=== PATIENT | female | born 1995 | race Caucasian/White ===

== ENCOUNTER 2016-03-02 00:24 | Inpatient (IN) | payer OTHER ==
[2016-03-02 06:27] VITALS: BP 135/76
--- NOTE | 2016-03-02 06:31 | Progress Note ---
Subjective General without complication full note dictated.
--- NOTE | 2016-03-02 06:31 | Progress Note ---
Subjective General without complication full note dictated.
[2016-03-02 06:48] VITALS: BP 104/53
[2016-03-02 07:01] VITALS: BP 145/67
[2016-03-02 07:15] VITALS: BP 132/63
--- NOTE | 2016-03-02 08:08 | DELIVERY SUMMARY ---
DELIVERY DATE: 03/02/2016 ATTENDING PHYSICIAN/PROVIDER: Bakari Medina MD PREPROCEDURE DIAGNOSIS: 1. Intrauterine at 38-6/7 weeks' gestation in spontaneous labor. POSTPROCEDURE DIAGNOSIS: Intrauterine at 38-6/7 weeks' gestation in spontaneous labor. PROCEDURE PERFORMED: 1. Normal spontaneous vaginal delivery SUMMARY: The patient presented to labor and delivery with spontaneous labor. She had spontaneous rupture of membranes when she was nearly complete. She had an easy second stage of labor, and at around 20 minutes of pushing was able to deliver her viable female infant to her maternal abdomen, had a good strong cry and was able to remain at the maternal belly cord was clamped and cut. The placenta was delivered spontaneously intact. Her baby had no significant complications. There was a small internal laceration that did not have any active bleeding after a small amount of pressure and so no stitches were needed. The baby was delivered occiput anterior position. There was no nuchal cord. Bulb suctioned on perineum and no complications.
[2016-03-02 09:45] VITALS: BP 110/57
--- NOTE | 2016-03-02 10:23 | NUR ---
PT TRANSFERED TO RM 318, IN STABLE CONDITION, HL FLUSHED, VSS, AFEBRILE, PERICARE GIVEN, LABIA SWOLLEN, ICE BAG GIVEN, AMBULATED TO ROOM, STEADY ON FEET, VOIDED, DECLINED SHOWER UNTIL LATER, BABY BREAST FEEDING WELL
--- NOTE | 2016-03-02 16:05 | NUR ---
PATIENT RESTING, FAMILY VISITING.
[2016-03-02 17:24] VITALS: BP 105/64
[2016-03-03] VITALS: BP 119/60
--- NOTE | 2016-03-03 07:43 | Progress Note ---
Subjective General Patient states that she is doing well. No concerns per mom or nursing. No cp,sob , calf tenderness Physical Exam Vital Signs / I&Os Vital Signs Date Time Temp Pulse Resp B/P Pulse O2 O2 Flow FiO2 Ox Delivery Rate 03/03 0000 98.6 66 18 119/60 03/02 1724 99.0 73 18 105/64 03/02 0945 98.2 78 18 110/57 I&O 03/03 0000 03/02 1600 03/02 0800 Intake Total Output Total Balance General Appearance Alert Lungs Clear to auscultation, Normal air movement Cardiovascular Regular rate and rhythm, No murmurs, gallops, rubs Abdomen Soft, No tenderness, uterus firm Extremities No edema Assessment and Plan Problem List 1. care and examination Plan Patient post doing well. Likely d/c today
--- NOTE | 2016-03-03 07:45 | Provider's Discharge Care Plan ---
Problem, Goal, Plan Problem List 1. care and examination Instructions: Follow up as needed, Follow up as directed
--- NOTE | 2016-03-03 07:45 | Provider's Discharge Care Plan ---
Problem, Goal, Plan Problem List 1. care and examination Instructions: Follow up as needed, Follow up as directed
[2016-03-03 09:34] VITALS: BP 102/63
--- NOTE | 2016-03-03 14:56 | NUR ---
Pt taking full care of baby this morning. She has been very successful with her . Follow up information provided for herself and baby, and discharge instructions reviewed in depth with good understanding. Pt states she has adequate help at home. D/C to home in care of partner at 1440.
== END 2016-03-03 14:45 | disposition home or self-care (01) | DRG 775 ==
LOC: OBC SRH 00:24 → OB SRH 00:30
PROVIDERS: ADMIT Family Medicine
PROC: 10E0XZZ Delivery of Products of Conception, External Approach (ICD-10-PCS; principal; 2016-03-02)
DX: O70.0 First degree perineal laceration during delivery (principal); Z3A.38 38 weeks gestation of pregnancy; Z37.0 Single live birth
CPT/HCPCS: 40011; 95059